=== PATIENT | female | born 1990 | race Caucasian/White ===

== ENCOUNTER 2017-01-22 03:03 | Emergency (ER) | payer MEDICAID ==
[~2017-01-22] VITALS: Ht 177.8 cm; Wt 118.0 kg
[2017-01-22 03:13] VITALS: BP 125/77
[2017-01-22] MEDS ORDERED: KETOROLAC 60MG/2ML VIAL IM ONE (06:30)
== END 2017-01-22 07:27 | disposition home or self-care (01) ==
LOC: ER 03:03
DX: K08.89 Other specified disorders of teeth and supporting structures (principal); Z91.010 Allergy to peanuts
CPT/HCPCS: 96372; 99283; J1885